=== PATIENT | male | born 1990 | race Caucasian/White ===

== ENCOUNTER 2025-02-08 13:56 | Inpatient (IN) | payer BC ==
[~2025-02-08] VITALS: Ht 175.3 cm; Wt 96.6 kg
[2025-02-08] MEDS ORDERED: ONDANSETRON HCL/PF 4 MG/2 ML VIAL ONE (14:26)
[2025-02-08] MEDS ORDERED: LORAZEPAM INJ 2 MG/ML VIAL ONE (14:27)
[2025-02-08] MEDS: ONDANSETRON HCL/PF - ER 4 MG/2 ML VIAL IV ONE (14:30)
[2025-02-08] MEDS: IV NS 0.9% 1,000 ML BAG IV ONE (14:30)
[2025-02-08] MEDS: LORAZEPAM INJ 2 MG/ML VIAL IV ONE (14:30)
[2025-02-08 15:16] LABS: PLATELET COUNT (AUTO) 221 K/uL (150-450); RED BLOOD CELL COUNT(AUTO) 4.79 MIL/uL (4.5-6.0); RED CELL DISTRIBUTION WIDTH 13.1 % (11.5-15.0); WHITE BLOOD COUNT (AUTO) 14.1 K/uL (4.3-11.0)
[2025-02-08 15:24] LABS: CALCIUM, SERUM 9.8 mg/dL (8.5-10.1); CREATININE 1.5 mg/dL (0.6-1.3); SODIUM SERUM 133 mmol/L (136-145); UREA NITROGEN, BLOOD 16 mg/dL (7-18)
[2025-02-08 15:29] LABS: ALCOHOL, BLOOD < 3 mg/dL (0-10); ASPARTATE AMINOTRANSFERASE 68 U/L (15-37); TOTAL PROTEIN, SERUM 8.5 g/dL (6.4-8.2)
[2025-02-08] MEDS ORDERED: LORAZEPAM INJ 2 MG/ML VIAL IV PRN (17:00)
[2025-02-08] MEDS ORDERED: Z GUARD REMEDY 4 OZ OINT TP PRN (17:00)
[2025-02-08] MEDS ORDERED: MAG HYDROX/AL HYDROX/SIMETH 30 ML UDC PO PRN (17:00)
[2025-02-08] MEDS ORDERED: ONDANSETRON HCL/PF 4 MG/2 ML VIAL IVP PRN (17:00)
[2025-02-08] MEDS ORDERED: MAGNESIUM HYDROXIDE 30 ML UDC PO PRN (17:00)
[2025-02-08 18:00] VITALS: BP 135/80; TEMP 97.9; O2SAT 99
[2025-02-08] MEDS: IV NS 0.9% 1,000 ML IV SCH (18:02)
[2025-02-08 20:00] VITALS: BP 114/67; TEMP 98.1; O2SAT 98
[2025-02-08] MEDS: ACETAMINOPHEN 325 MG TABLET PO PRN (22:28)
[2025-02-09] VITALS: BP 114/79; TEMP 97.2; TEMP 97.5; O2SAT 100
[2025-02-09 04:00] VITALS: BP 111/63; TEMP 97.6; O2SAT 99
[2025-02-09 06:54] LABS: PLATELET COUNT (AUTO) 131 K/uL (150-450); RED BLOOD CELL COUNT(AUTO) 4.16 MIL/uL (4.5-6.0); RED CELL DISTRIBUTION WIDTH 13.2 % (11.5-15.0); WHITE BLOOD COUNT (AUTO) 7.9 K/uL (4.3-11.0)
[2025-02-09 07:03] LABS: CALCIUM, SERUM 8.3 mg/dL (8.5-10.1); CREATININE 0.8 mg/dL (0.6-1.3); PHOSPHORUS 3.6 mg/dL (2.5-4.9); SODIUM SERUM 139.0 mmol/L (136-145); UREA NITROGEN, BLOOD 10.0 mg/dL (7-18)
[2025-02-09] MEDS: PANTOPRAZOLE 40 MG TABLET.DR PO SCH (07:55)
[2025-02-09 08:00] VITALS: BP 139/63; TEMP 97.9; O2SAT 99
[2025-02-09 08:54] VITALS: TEMP 97.9
[2025-02-09] MEDS ORDERED: IV NS 0.9% 1,000 ML IV PRN (10:28)
== END 2025-02-09 12:25 | disposition home or self-care (01) | DRG 896 ==
LOC: ER 14:00 → TELE1 17:10
PROVIDERS: ADMIT Internal Medicine; ATTEND Internal Medicine
DX: F10.139 Alcohol abuse with withdrawal, unspecified (principal); N17.0 Acute kidney failure with tubular necrosis; E87.1 Hypo-osmolality and hyponatremia; R56.9 Unspecified convulsions; Y90.0 Blood alcohol level of less than 20 mg/100 ml; D72.829 Elevated white blood cell count, unspecified; E86.1 Hypovolemia
CPT/HCPCS: 36415; 70450-TC; 71045-TC; 72125-TC; 80048-TC; 80076-TC; 82962-TC; 83735-TC; 84100-TC; 84484-TC; 85025-TC; 97110-TC; 97116-TC; 97530-TC; A4223; G0378; G0480; J2060; J2405; J7030